=== PATIENT | male | born 1960 | race Caucasian/White ===

== ENCOUNTER 2017-03-12 11:21 | Emergency (ER) | payer OTHER ==
[~2017-03-12] VITALS: Ht 172.7 cm; Wt 92.2 kg
[~2017-03-12 11:21] MED LIST: ADULT LOW DOSE81 M1 PO; ASPIR 8181 M1 PO; ASPIRIN EC325 MG PO; ATORVASTATIN CA20 MG PO; BANOPHEN25 M3 PO; CARDIZEM CD,CA240 MG PO; CARDIZEM CD240 MG PO; CIPRO500 MG PO; CLOPIDOGREL75 MG PO; COLACE100 MG PO; DULCOLAX10 MG PR; ERGOCALCIF50000 UNIT PO; FLEET ENEMA-AD118 ML PR; GLUCAGON1 MG IM; JARDIANCE10 MG PO; K-DUR20 MEQ PO; LASIX40 MG PO; LEVEMIR FL100 UNIT/1 SC; LEVEMIR100 UNIT/2 SC; LISINOPRIL2.5 MG PO; LISINOPRIL40 MG PO; LOPRESSOR50 MG PO; LOVENOX40 MG/0.4 SC; METFORMIN HCL1000 MG PO; METOPROLOL TART50 MG PO; NOVOLOG 10100 UNITS/ SC; NOVOLOG PE100 UNITS/ SC; PAROXETINE HCL40 MG PO; PAXIL20 MG PO; PHILLIPS'400 MG/5 M PO; POLYETHYLENE GL17 GM PO; QUETIAPINE FUMA25 MG PO; ZIPRASIDONE HCL20 MG PO
[2017-03-12 12:25] LABS: HEMATOCRIT 39.6 % (38.0-50.0); HEMOGLOBIN 13.9 G/DL (12.5-16.6); MCH 31.3 PG (29.0-34.0); MCHC 35.1 G/DL (30.0-36.0); MCV 89.2 FL (86-99); PLATELET COUNT 272 K/uL (156-360); RBC DIS.WIDTH-CV 12.2 % (11.8-14.6); RBC DIS.WIDTH-SD 39.5 % (39-53); RED BLOOD COUNT 4.44 M/uL (4.00-5.50); WHITE BLOOD COUNT 10.3 K/uL (4.1-10.2)
[2017-03-12 12:39] LABS: CHLORIDE 104 mEq/L (99-109); POTASSIUM 4.4 mEq/L (3.7-5.4); SODIUM 139 mEq/L (136-147)
[2017-03-12 12:41] LABS: GLUCOSE 109 mg/dL (70-99)
[2017-03-12 12:44] LABS: CREATININE 0.8 mg/dL (0.6-1.3); GFR ESTIMATE (CALCULATED) > 59 mL/min/ (58.99-99999)
[2017-03-12 12:45] LABS: UREA NITROGEN (BUN) 15 mg/dL (9-23)
[2017-03-12 12:49] LABS: TROP-I INTERPRETATION NEGATIVE; TROPONIN-I < 0.01 ng/mL (0.0-0.30)
[2017-03-12 13:37] LABS: APPEARANCE CLEAR ((CLEAR)); BILIRUBIN NEGATIVE; BLOOD NEGATIVE; COLOR STRAW ((YELLOW)); GLUCOSE (STRIP) NEGATIVE; KETONES NEGATIVE; LEUKOCYTES NEGATIVE; NITRITE NEGATIVE; PROTEIN (STRIP) NEGATIVE; UCUL ADDED? NO; UROBILINOGEN 0.2 MG/DL (0.2-1.0)
[2017-03-12 17:13] VITALS: BP 134/76
== END 2017-03-12 17:14 ==
LOC: EME 11:21
PROVIDERS: Emergency Medicine
DX: F03.91 Unspecified dementia, unspecified severity, with behavioral disturbance (principal); I25.2 Old myocardial infarction; I10 Essential (primary) hypertension; E78.5 Hyperlipidemia, unspecified; E11.9 Type 2 diabetes mellitus without complications; J45.909 Unspecified asthma, uncomplicated; Z79.82 Long term (current) use of aspirin; Z79.4 Long term (current) use of insulin
CPT/HCPCS: 71045; 80048; 81003; 84484; 85027; 90832; 93005; 99281; 99284; J2060